=== PATIENT | male | born 1935 | race Caucasian/White ===

== ENCOUNTER → 2019-01-01 | Outpatient (CLI) | payer MEDICARE, BC ==
[~2019-01-01] MED LIST: ATOR10; ATOR20 PO; CELE100 PO; CELE200; CETI10 PO; CLOP75 PO; DEPO-TESTOSTERONE; DICL.1SO OD; DIPASPER PO; ENBREL; ETAN25I SUBQ; FISH1000 PO; GLIM2; GLIM4 PO; GUAI600T33 PO; METF500 PO; METTREX2.5; NIFE90ER; Norco 10-325 T1 EACH PO; OMEP20ER PO; OXYACE5T PO; ROSI4; RXERYTOPTH OP; TESTOST; TRAM50; TRAM50 PO; VENL150ER PO; VENL75ER; VOLTAREN; [UNRECOGNIZED DRUG - REMARK]; [UNRECOGNIZED DRUG - REMARK]
== END | disposition home or self-care (01) ==
LOC: LAB 13:53 → LAB SHORT 13:53 → LAB FUT 01-03 16:45
DX: R19.7 Diarrhea, unspecified (principal)
CPT/HCPCS: 83993

== ENCOUNTER 2019-05-29 16:58 | Emergency (ER) | payer MEDICARE, BC ==
[~2019-05-29] VITALS: Ht 177.8 cm; Wt 72.1 kg
[~2019-05-29 16:58] MED LIST changes: +Aggrenox Capsu1 EACH PO; +LOSA50 PO; +MEMA10 PO; +Percocet 5-3251 EACH PO
[2019-05-29 18:01] LABS: BASOPHILS ABSOLUTE AUTO 0.03 K/mm3 (0.00-0.23); BASOPHILS PERCENT AUTO 0 % (0-2); EOSINOPHILS ABSOLUTE AUTO 0.86 K/mm3 (0.00-0.68); EOSINOPHILS PERCENT AUTO 8 % (0-6); Hematocrit 42.1 % (37.0-53.0); Hemoglobin 14.2 g/dL (13.5-17.5); IMMATURE GRAN ABSOLUTE AUTO 0.03 K/mm3 (0.00-0.10); IMMATURE GRAN PERCENT AUTO 0 % (0-1); LYMPHOCYTES ABSOLUTE AUTO 2.62 K/mm3 (0.84-5.20); LYMPHOCYTES PERCENT AUTO 25 % (21-46); MONOCYTES ABSOLUTE AUTO 1.44 K/mm3 (0.16-1.47); MONOCYTES PERCENT AUTO 14 % (4-13); Mean Corpuscular HGB 31.6 pg (26.0-34.0); Mean Corpuscular HGB Conc 33.7 g/dL (31.5-36.5); Mean Corpuscular Volume 94 fL (80-100); Mean Platelet Volume 8.8 fL (9.1-12.4); NEUTROPHILS ABSOLUTE AUTO 5.67 K/mm3 (1.96-9.15); NEUTROPHILS PERCENT AUTO 53 % (41-73); Platelet Count 175 K/mm3 (150-400); RDW Coefficient Variation 12.8 % (11.7-14.2); RDW Standard Deviation 43.7 fL (35.1-46.3); Red Blood Cell Count 4.49 M/mm3 (4.30-5.90); White Blood Cell Count 10.65 K/mm3 (4.00-11.30)
[2019-05-29] MEDS ORDERED: ATORVASTATIN CA20 MG PO (18:10)
[2019-05-29] MEDS ORDERED: TAMSULOSIN HCL0.4 MG PO (18:11)
[2019-05-29] MEDS ORDERED: Venlafaxine HCl75 MG PO (18:12)
[2019-05-29] MEDS ORDERED: LOSARTAN-HCTZ1 EACH PO (18:12)
[2019-05-29] MEDS ORDERED: ETAN50I (18:12)
[2019-05-29 18:20] LABS: Alanine Aminotransfer (ALT/SGP 24 U/L (12-78); Albumin/Globulin Ratio 1.1 (0.8-1.8); Alk Phos 66 U/L (50-136); Anion Gap 11 mmol/L (6-16); Aspartate Aminotrans (AST/SGOT 15 U/L (12-37); Bilirubin, Total 0.7 mg/dL (0.1-1.0); Blood Urea Nitrogen 28 mg/dL (8-24); Bun/Creatinine Ratio 21.1 (12.0-20.0); CO2, Blood 23 mmol/L (21-32); Chloride, Blood 103 mmol/L (98-108); Creatinine, Blood 1.33 mg/dL (0.60-1.20); Globulin, Blood 3.5 g/dL (2.2-4.0); Glomerular Filtration Rate 54 (60-); Glucose, Blood 67 mg/dL (70-99); Potassium, Blood 4.3 mmol/L (3.5-5.5); Sodium, Blood 137 mmol/L (136-145); Total Protein, Blood 7.5 g/dL (6.4-8.2); Troponin I <0.015 ng/mL (0.000-0.040)
[2019-05-29 18:22] LABS: Source, Urine Clean Catch
[2019-05-29 18:36] LABS: Bilirubin, Urine Neg (Neg); Blood, Urine Neg (Neg); Glucose Qualitative, Urine Neg (Neg); Ketones, Urine 1+ (Neg); Leukocyte Esterase, Urine 1+ (Neg); Nitrite, Urine Neg (Neg); Protein, Urine Neg (Neg); Specific Gravity, Urine 1.015 (1.003-1.022); Urobilinogen, Urine NORM (Normal)
[2019-05-29 18:43] LABS: Appearance, Urine Clear (Clear); Color, Urine Yellow (P-Yellow)
[2019-05-29 18:44] LABS: Red Blood Cells, Urine 0-2 /hpf (0-2); Squamous Epithelial Cells Mod /hpf (Few)
[2019-05-29 18:45] LABS: Bacteria Rare /hpf
== END 2019-05-29 19:28 | disposition home or self-care (01) ==
LOC: ER 16:58
PROVIDERS: Physician Assistant
DX: S61.215A Laceration without foreign body of left ring finger without damage to nail, initial encounter (principal); S80.02XA Contusion of left knee, initial encounter; W10.9XXA Fall (on) (from) unspecified stairs and steps, initial encounter; Z79.899 Other long term (current) drug therapy; Z79.84 Long term (current) use of oral hypoglycemic drugs; Z79.82 Long term (current) use of aspirin; Z86.73 Personal history of transient ischemic attack (TIA), and cerebral infarction without residual deficits; E11.9 Type 2 diabetes mellitus without complications
CPT/HCPCS: 36415; 80053; 81001; 84484; 85025; 87086; 93005; 93010; 96360; 99283-25; J7030

== ENCOUNTER 2019-11-04 09:15 | Observation (INO) | payer MEDICARE, BC ==
[~2019-11-04] VITALS: Ht 180.3 cm; Wt 87.5 kg
[~2019-11-04 09:15] MED LIST changes: +ATORVASTATIN CA20 MG PO; +ETAN50I; +Glucophage1000 MG PO; +LOSARTAN-HCTZ1 EACH PO; +TAMSULOSIN HCL0.4 MG PO; +Venlafaxine HCl75 MG PO
[2019-11-04] MEDS ORDERED: LOSARTAN POTASS50 MG PO (09:57)
[2019-11-04] MEDS ORDERED: Hydrochloroth12.5 MG PO (09:58)
[2019-11-04] MEDS ORDERED: PLAVIX75 MG PO (09:58)
[2019-11-04 10:05] LABS: BASOPHILS ABSOLUTE AUTO 0.01 K/mm3 (0.00-0.23); BASOPHILS PERCENT AUTO 0 % (0-2); EOSINOPHILS ABSOLUTE AUTO 0.37 K/mm3 (0.00-0.68); EOSINOPHILS PERCENT AUTO 5 % (0-6); Hematocrit 36.4 % (37.0-53.0); Hemoglobin 12.6 g/dL (13.5-17.5); IMMATURE GRAN ABSOLUTE AUTO 0.03 K/mm3 (0.00-0.10); IMMATURE GRAN PERCENT AUTO 0 % (0-1); LYMPHOCYTES ABSOLUTE AUTO 1.68 K/mm3 (0.84-5.20); LYMPHOCYTES PERCENT AUTO 21 % (21-46); MONOCYTES ABSOLUTE AUTO 0.87 K/mm3 (0.16-1.47); MONOCYTES PERCENT AUTO 11 % (4-13); Mean Corpuscular HGB 31.9 pg (26.0-34.0); Mean Corpuscular HGB Conc 34.6 g/dL (31.5-36.5); Mean Corpuscular Volume 92 fL (80-100); Mean Platelet Volume 8.9 fL (9.1-12.4); NEUTROPHILS ABSOLUTE AUTO 5.05 K/mm3 (1.96-9.15); NEUTROPHILS PERCENT AUTO 63 % (41-73); Platelet Count 177 K/mm3 (150-400); RDW Coefficient Variation 12.3 % (11.7-14.2); RDW Standard Deviation 42.2 fL (35.1-46.3); Red Blood Cell Count 3.95 M/mm3 (4.30-5.90); White Blood Cell Count 8.01 K/mm3 (4.00-11.30)
[2019-11-04 10:24] LABS: Alanine Aminotransfer (ALT/SGP 18 U/L (12-78); Albumin, Blood 3.6 g/dL (3.4-5.0); Albumin/Globulin Ratio 1.1 (0.8-1.8); Alk Phos 69 U/L (50-136); Anion Gap 8 mmol/L (6-16); Aspartate Aminotrans (AST/SGOT 13 U/L (12-37); Bilirubin, Total 0.5 mg/dL (0.1-1.0); Blood Urea Nitrogen 16 mg/dL (8-24); CO2, Blood 25 mmol/L (21-32); Calcium, Blood 9.1 mg/dL (8.5-10.1); Chloride, Blood 99 mmol/L (98-108); Creatinine, Blood 0.89 mg/dL (0.60-1.20); Globulin, Blood 3.2 g/dL (2.2-4.0); Glomerular Filtration Rate >60 (60-); Glucose, Blood 131 mg/dL (70-99); Potassium, Blood 4.4 mmol/L (3.5-5.5); Sodium, Blood 132 mmol/L (136-145); Total Protein, Blood 6.8 g/dL (6.4-8.2); Troponin I <0.015 ng/mL (0.000-0.040)
[2019-11-04 10:35] LABS: International Normalized Ratio 0.97; Prothrombin Time Results 10.4 Sec (9.7-11.5)
[2019-11-04] MEDS ORDERED: VITAMIN B-121000 MC2 PO (14:52)
[2019-11-04] MEDS ORDERED: VENL75ER PO (14:53)
[2019-11-04] MEDS ORDERED: TAMS.4ER PO (14:54)
--- NOTE | 2019-11-04 15:36 | NUR ---
ECHOCARDIOGRAM COMPLETE
--- NOTE | 2019-11-04 15:38 | NUR ---
CALLED FOR REPORT FROM [facility]. NO ANSWER AT THIS TIME.
--- NOTE | 2019-11-04 18:08 | NUR ---
SHIFT SUMMARY PATIENT A/O, SLOW TO RESPOND. FAMILY AT BEDSIDE. FLUIDS INFUSING. PATIENT ARRIVED TO FLOOR LATER IN SHIFT. PATIENT ABLE TO AMBULATE WITH FWW ALTHOUGH SHUFFLING GATE AND SLIGHTLY UNSTEADY. PATIENT EDUCATION ON FALL PREVENTION COMPLETED WITH FAMILY AND PATIENT. TEACH BACK COMPLETED TO AVOID FALLS BY PATIENT. MED REC COMPLETED.
--- NOTE | 2019-11-04 23:12 | NUR ---
Pt refused to use urinal, RIDING TEACHER attempted to assist to BR, very unsteady. Assisted back to bed. Agreed to use bedside commode. IV site of right AC removed as pt continued to bend arm and was irritated with IV machine beeping. New IV (#20) placed in left forearm. NS infusing at 75 ml/hr without apparent distress. Call light in reach.
--- NOTE | 2019-11-05 05:50 | NUR ---
AWAKE INTERMITTENTLY TO USE THE BATHROOM - REFUSED TO USE THE URINAL, BUT WAS QUITE UNSTEADY AMBULATING, SO HE COMPROMIZED AND AGREED TO THE COMMODE AT BEDSIDE. USED COMMODE 2 OR 3 TIMES WITH ASSIST. IVF INFUSING PER MD ORDERS - SEE MAR FOR DETAILS. CALL LIGHT IN REACH.
--- NOTE | 2019-11-05 10:36 | NUR ---
PROVIDER CONTACT REGARDING LEFT ARM PAIN CALLED AND SPOKE WITH DR. CLEMENTE, REPORTED PAIN SEVERE (REPORTED BY PATIENT). DR. CLEMENTE TO REVIEW AND MAKE NEW ORDERS FOR PATIENT. NO NEW ORDERS PROVIDED TO LN.
[2019-11-05] MEDS ORDERED: MELO7.5 PO (13:25)
--- NOTE | 2019-11-05 14:17 | NUR ---
Advance Directive Education/Spiritual Care Visit conducted. Upon receiving an admit referral for advance directive education, I visited patient. Patient is sitting up in bed and alert. I explain the purpose of my visit and then the purpose of the advance directive and patient politely stated that he has no interest in the advance directive. I asked questions about patient's zoroastrian background and patient stated that he has none. 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 Currently his family is the source of strength and anika. I listen empathically, normalize patient's experience and provide companionship. Patient showed little to no change from my visit.
--- NOTE | 2019-11-05 15:33 | NUR ---
PATIENT DISCHARGED PATIENT IV REMOVED. FAMILY AT BEDSIDE. DISCHARGE INSTRUCTIONS PROVIDED TO PATIENT AND FAMILY. PATIENT WHEELED OUT BY WC. PRESCRIPTIONS SENT TO PHARMACY.
== END 2019-11-05 15:31 | disposition home health service (06) ==
LOC: ER 09:15 → MEDS 09:16
PROVIDERS: Emergency Medicine; ADMIT Family Medicine
DX: R55 Syncope and collapse (principal); G30.9 Alzheimer's disease, unspecified; F02.80 Dementia in other diseases classified elsewhere, unspecified severity, without behavioral disturbance, psychotic disturbance, mood disturbance, and anxiety; F01.50 Vascular dementia, unspecified severity, without behavioral disturbance, psychotic disturbance, mood disturbance, and anxiety; E87.1 Hypo-osmolality and hyponatremia; I10 Essential (primary) hypertension; M05.9 Rheumatoid arthritis with rheumatoid factor, unspecified; E11.9 Type 2 diabetes mellitus without complications; M79.7 Fibromyalgia; K21.9 Gastro-esophageal reflux disease without esophagitis; E78.5 Hyperlipidemia, unspecified; M19.032 Primary osteoarthritis, left wrist; E11.42 Type 2 diabetes mellitus with diabetic polyneuropathy; G47.33 Obstructive sleep apnea (adult) (pediatric); M85.80 Other specified disorders of bone density and structure, unspecified site; E86.9 Volume depletion, unspecified; R29.6 Repeated falls; Z79.02 Long term (current) use of antithrombotics/antiplatelets; Z79.82 Long term (current) use of aspirin; Z79.84 Long term (current) use of oral hypoglycemic drugs; Z79.899 Other long term (current) drug therapy; Z88.8 Allergy status to other drugs, medicaments and biological substances; Z66 Do not resuscitate
CPT/HCPCS: 36415; 70450; 70551; 73080; 73090; 73110; 80053; 84484; 85025; 85610; 85730; 93005; 93010; 93306; 93880; 96372; 99285-25; A9270; G0378; J1650; J7030

== ENCOUNTER 2020-11-23 15:51 | Emergency (ER) | payer MEDICARE, BC ==
[~2020-11-23] VITALS: Ht 188 cm; Wt 90.7 kg
[~2020-11-23 15:51] MED LIST changes: +GLUCOPHAGE1000 M1 PO; -Glucophage1000 MG PO; +Hydrochloroth12.5 MG PO; +LOSARTAN POTASS50 MG PO; +MELO7.5 PO; +PLAVIX75 MG PO; +TAMS.4ER PO; +VENL75ER PO; +VITAMIN B-121000 MC2 PO
[2020-11-23 16:41] LABS: BASOPHILS ABSOLUTE AUTO 0.03 K/mm3 (0.00-0.23); BASOPHILS PERCENT AUTO 0 % (0-2); EOSINOPHILS ABSOLUTE AUTO 0.57 K/mm3 (0.00-0.68); EOSINOPHILS PERCENT AUTO 5 % (0-6); Hematocrit 37.9 % (37.0-53.0); Hemoglobin 12.9 g/dL (13.5-17.5); IMMATURE GRAN ABSOLUTE AUTO 0.04 K/mm3 (0.00-0.10); IMMATURE GRAN PERCENT AUTO 0 % (0-1); LYMPHOCYTES ABSOLUTE AUTO 2.13 K/mm3 (0.84-5.20); LYMPHOCYTES PERCENT AUTO 20 % (21-46); MONOCYTES ABSOLUTE AUTO 1.25 K/mm3 (0.16-1.47); MONOCYTES PERCENT AUTO 12 % (4-13); Mean Corpuscular HGB 31.5 pg (26.0-34.0); Mean Corpuscular Volume 93 fL (80-100); Mean Platelet Volume 9.1 fL (9.1-12.4); NEUTROPHILS ABSOLUTE AUTO 6.66 K/mm3 (1.96-9.15); NEUTROPHILS PERCENT AUTO 62 % (41-73); Platelet Count 193 K/mm3 (150-400); RDW Coefficient Variation 13.2 % (11.7-14.2); RDW Standard Deviation 44.5 fL (35.1-46.3); Red Blood Cell Count 4.09 M/mm3 (4.30-5.90); White Blood Cell Count 10.68 K/mm3 (4.00-11.30)
[2020-11-23 16:52] LABS: Alanine Aminotransfer (ALT/SGP 28 U/L (12-78); Albumin, Blood 3.5 g/dL (3.4-5.0); Albumin/Globulin Ratio 1.1 (0.8-1.8); Alk Phos 57 U/L (50-136); Anion Gap 9 mmol/L (6-16); Aspartate Aminotrans (AST/SGOT 101 U/L (12-37); Bilirubin, Total 0.8 mg/dL (0.1-1.0); Blood Urea Nitrogen 30 mg/dL (8-24); Bun/Creatinine Ratio 29.7 (12.0-20.0); CO2, Blood 23 mmol/L (21-32); Calcium, Blood 9.3 mg/dL (8.5-10.1); Chloride, Blood 106 mmol/L (98-108); Creatinine, Blood 1.01 mg/dL (0.60-1.20); Globulin, Blood 3.3 g/dL (2.2-4.0); Glomerular Filtration Rate >60 (60-); Glucose, Blood 99 mg/dL (70-99); Potassium, Blood 4.7 mmol/L (3.5-5.5); Sodium, Blood 138 mmol/L (136-145); Total Protein, Blood 6.8 g/dL (6.4-8.2); Troponin I <0.015 ng/mL (0.000-0.040)
[2020-11-23 18:35] LABS: Source, Urine Clean Catch
[2020-11-23 18:41] LABS: Appearance, Urine Clear (Clear); Bilirubin, Urine Neg (Neg); Blood, Urine 3+ (Neg); Color, Urine Yellow (P-Yellow); Glucose Qualitative, Urine Neg (Neg); Ketones, Urine Neg (Neg); Leukocyte Esterase, Urine 3+ (Neg); Nitrite, Urine Neg (Neg); Protein, Urine Neg (Neg); Urobilinogen, Urine NORM (Normal)
[2020-11-23 18:52] LABS: Bacteria Few /hpf; Red Blood Cells, Urine 0-2 /hpf (0-2); Squamous Epithelial Cells Not Seen /hpf (Few); White Blood Cells, Urine 25-50 /hpf (0-5)
[2020-11-23] MEDS ORDERED: TIZANIDINE HCL2 M1 PO (19:12)
[2020-11-23] MEDS ORDERED: ENBREL50 MG/1 M2 SC (19:13)
[2020-11-23] MEDS ORDERED: FOSAMAX70 MG PO (19:15)
[2020-11-23] MEDS ORDERED: CEFP200 PO (20:29)
== END 2020-11-23 21:15 | disposition home or self-care (01) ==
LOC: ER 15:51
PROVIDERS: Emergency Medicine
DX: N39.0 Urinary tract infection, site not specified (principal); E86.0 Dehydration; M79.604 Pain in right leg; Z79.899 Other long term (current) drug therapy
CPT/HCPCS: 80053; 81001; 84484; 85025; 87077; 87086; 87186; 93005; 93010; 93971; 96365; 99285-25; J0696; J7120

== ENCOUNTER 2021-05-12 08:35 | Emergency (ER) | payer OTHER, MEDICARE, BC ==
[~2021-05-12] VITALS: Ht 182.9 cm; Wt 88.5 kg
[~2021-05-12 08:35] MED LIST changes: +CEFP200 PO; +ENBREL50 MG/1 M2 SC; +FOSAMAX70 MG PO; +TIZANIDINE HCL2 M1 PO
[2021-05-12 09:25] LABS: Calcium, Ionized (POC) 1.19 mmol/L (1.10-1.46); Chloride (POC) 98 mmol/L (98-108); Creatinine (POC) 1.2 mg/dL (0.8-1.3); Glucose (ISTAT POC) 148 mg/dL (70-99); Hemoglobin (POC) 11.6 g/dL (13.5-17.5); Potassium (POC) 4.2 mmol/L (3.5-5.5); Sodium (POC) 135 mmol/L (135-148); Total CO2 (POC) 22 mmol/L (21-32)
[2021-05-12 10:07] LABS: Source, Urine Clean Catch
[2021-05-12 10:15] LABS: Appearance, Urine Hazy (Clear); Bilirubin, Urine Neg (Neg); Blood, Urine 1+ (Neg); Color, Urine Yellow (P-Yellow); Glucose Qualitative, Urine Neg (Neg); Ketones, Urine Neg (Neg); Leukocyte Esterase, Urine 3+ (Neg); Nitrite, Urine Neg (Neg); Protein, Urine 1+ (Neg); Specific Gravity, Urine 1.015 (1.003-1.022); Urobilinogen, Urine NORM (Normal)
[2021-05-12 10:54] LABS: Red Blood Cells, Urine 0-2 /hpf (0-2); Squamous Epithelial Cells Rare /hpf (Few); White Blood Cells, Urine 25-50 /hpf (0-5)
[2021-05-12 10:55] LABS: Bacteria Few /hpf
== END 2021-05-12 11:03 | disposition home or self-care (01) ==
LOC: ER 08:35
PROVIDERS: Emergency Medicine
DX: Z04.3 Encounter for examination and observation following other accident (principal); Z79.02 Long term (current) use of antithrombotics/antiplatelets; Z79.899 Other long term (current) drug therapy; W01.0XXA Fall on same level from slipping, tripping and stumbling without subsequent striking against object, initial encounter
CPT/HCPCS: 36415; 51701; 72170; 80047; 81001; 85014; 87077; 87086; 87186; 93005; 93010; 99284-25

== ENCOUNTER 2021-06-05 22:33 | Emergency (ER) | payer MEDICARE, BC ==
[~2021-06-05] VITALS: Ht 182.9 cm; Wt 83.9 kg
[2021-06-05 23:07] LABS: BASOPHILS ABSOLUTE AUTO 0.02 K/mm3 (0.00-0.23); BASOPHILS PERCENT AUTO 0 % (0-2); EOSINOPHILS ABSOLUTE AUTO 0.92 K/mm3 (0.00-0.68); EOSINOPHILS PERCENT AUTO 10 % (0-6); Hematocrit 35.4 % (37.0-53.0); Hemoglobin 12.1 g/dL (13.5-17.5); IMMATURE GRAN ABSOLUTE AUTO 0.02 K/mm3 (0.00-0.10); IMMATURE GRAN PERCENT AUTO 0 % (0-1); LYMPHOCYTES ABSOLUTE AUTO 3.28 K/mm3 (0.84-5.20); LYMPHOCYTES PERCENT AUTO 35 % (21-46); MONOCYTES ABSOLUTE AUTO 1.31 K/mm3 (0.16-1.47); MONOCYTES PERCENT AUTO 14 % (4-13); Mean Corpuscular HGB 31.3 pg (26.0-34.0); Mean Corpuscular HGB Conc 34.2 g/dL (31.5-36.5); Mean Corpuscular Volume 92 fL (80-100); Mean Platelet Volume 8.8 fL (9.1-12.4); NEUTROPHILS PERCENT AUTO 41 % (41-73); Platelet Count 220 K/mm3 (150-400); RDW Coefficient Variation 13.8 % (11.7-14.2); RDW Standard Deviation 46.5 fL (35.1-46.3); Red Blood Cell Count 3.87 M/mm3 (4.30-5.90); White Blood Cell Count 9.35 K/mm3 (4.00-11.30)
[2021-06-05 23:25] LABS: Alanine Aminotransfer (ALT/SGP 29 U/L (12-78); Albumin, Blood 3.5 g/dL (3.4-5.0); Albumin/Globulin Ratio 1.1 (0.8-1.8); Alk Phos 67 U/L (50-136); Anion Gap 5 mmol/L (6-16); Aspartate Aminotrans (AST/SGOT 17 U/L (12-37); Bilirubin, Total 0.4 mg/dL (0.1-1.0); Blood Urea Nitrogen 21 mg/dL (8-24); Bun/Creatinine Ratio 19.4 (12.0-20.0); CO2, Blood 25 mmol/L (21-32); Calcium, Blood 9.2 mg/dL (8.5-10.1); Chloride, Blood 106 mmol/L (98-108); Creatinine, Blood 1.08 mg/dL (0.60-1.20); Globulin, Blood 3.3 g/dL (2.2-4.0); Glomerular Filtration Rate >60 (60-); Glucose, Blood 131 mg/dL (70-99); Potassium, Blood 4.3 mmol/L (3.5-5.5); Sodium, Blood 136 mmol/L (136-145); Total Protein, Blood 6.8 g/dL (6.4-8.2)
[2021-06-05 23:46] LABS: Source, Urine Clean Catch
[2021-06-05 23:50] LABS: Bilirubin, Urine Neg (Neg); Blood, Urine 1+ (Neg); Glucose Qualitative, Urine Neg (Neg); Ketones, Urine Neg (Neg); Leukocyte Esterase, Urine 3+ (Neg); Nitrite, Urine Neg (Neg); Protein, Urine 1+ (Neg); Urobilinogen, Urine NORM (Normal)
[2021-06-05 23:52] LABS: Color, Urine Yellow (P-Yellow)
[2021-06-05 23:53] LABS: Appearance, Urine Clear (Clear)
[2021-06-05 23:55] LABS: White Blood Cells, Urine TNTC /hpf (0-5)
[2021-06-05 23:56] LABS: Bacteria Few /hpf; Red Blood Cells, Urine 0-2 /hpf (0-2); Squamous Epithelial Cells Few /hpf (Few)
[2021-06-06] MEDS ORDERED: CEFP200 PO (01:06)
== END 2021-06-06 01:25 | disposition home or self-care (01) ==
LOC: ER 22:33
PROVIDERS: Emergency Medicine
DX: N39.0 Urinary tract infection, site not specified (principal); F03.90 Unspecified dementia, unspecified severity, without behavioral disturbance, psychotic disturbance, mood disturbance, and anxiety; E11.9 Type 2 diabetes mellitus without complications; G47.33 Obstructive sleep apnea (adult) (pediatric); Z79.84 Long term (current) use of oral hypoglycemic drugs; Z79.02 Long term (current) use of antithrombotics/antiplatelets; Z79.899 Other long term (current) drug therapy
CPT/HCPCS: 80053; 81001; 85025; 87077; 87086; 87186; 93005; 93010; 96365; 99284-25; J0696

== ENCOUNTER → 2021-08-04 | Outpatient (CLI) | payer MEDICARE, BC ==
[~2021-08-04] MED LIST changes: +CARBIDOPA-LEVO1 EA17
[2021-08-04 11:00] LABS: Source, Urine Voided
[2021-08-04 12:50] LABS: Appearance, Urine Clear (Clear); Bilirubin, Urine Neg (Neg); Blood, Urine Neg (Neg); Color, Urine Yellow (P-Yellow); Glucose Qualitative, Urine Neg (Neg); Ketones, Urine Neg (Neg); Leukocyte Esterase, Urine Neg (Neg); Nitrite, Urine Neg (Neg); Protein, Urine Neg (Neg); Urobilinogen, Urine NORM (Normal)
== END | disposition home or self-care (01) ==
LOC: LAB 10:58 → LAB SHORT 10:58
PROVIDERS: Family Medicine
DX: N39.41 Urge incontinence (principal)
CPT/HCPCS: 81003

== ENCOUNTER → 2021-09-08 | Outpatient (CLI) | payer MEDICARE, BC ==
[2021-09-08 10:04] LABS: Source, Urine Voided
[2021-09-08 12:04] LABS: Appearance, Urine Clear (Clear); Bilirubin, Urine Neg (Neg); Blood, Urine Neg (Neg); Color, Urine Yellow (P-Yellow); Glucose Qualitative, Urine Neg (Neg); Ketones, Urine Neg (Neg); Leukocyte Esterase, Urine Neg (Neg); Nitrite, Urine Neg (Neg); Protein, Urine Neg (Neg); Urobilinogen, Urine NORM (Normal)
== END | disposition home or self-care (01) ==
LOC: LAB 10:01 → LAB SHORT 10:01
PROVIDERS: Physician Assistant
DX: R41.82 Altered mental status, unspecified (principal)
CPT/HCPCS: 81003

== ENCOUNTER 2022-02-08 13:10 | Emergency (ER) | payer MEDICARE, BC ==
[~2022-02-08] VITALS: Ht 185.4 cm; Wt 79.4 kg
[2022-02-08 14:36] LABS: BASOPHILS ABSOLUTE AUTO 0.02 K/mm3 (0.00-0.23); BASOPHILS PERCENT AUTO 0 % (0-2); EOSINOPHILS ABSOLUTE AUTO 0.79 K/mm3 (0.00-0.68); EOSINOPHILS PERCENT AUTO 10 % (0-6); Hematocrit 40.2 % (37.0-53.0); Hemoglobin 13.3 g/dL (13.5-17.5); IMMATURE GRAN ABSOLUTE AUTO 0.02 K/mm3 (0.00-0.10); IMMATURE GRAN PERCENT AUTO 0 % (0-1); LYMPHOCYTES ABSOLUTE AUTO 2.34 K/mm3 (0.84-5.20); LYMPHOCYTES PERCENT AUTO 29 % (21-46); MONOCYTES ABSOLUTE AUTO 0.85 K/mm3 (0.16-1.47); MONOCYTES PERCENT AUTO 11 % (4-13); Mean Corpuscular HGB 30.9 pg (26.0-34.0); Mean Corpuscular HGB Conc 33.1 g/dL (31.5-36.5); Mean Corpuscular Volume 93 fL (80-100); Mean Platelet Volume 9.1 fL (9.1-12.4); NEUTROPHILS ABSOLUTE AUTO 4.03 K/mm3 (1.96-9.15); NEUTROPHILS PERCENT AUTO 50 % (41-73); Platelet Count 195 K/mm3 (150-400); RDW Coefficient Variation 12.8 % (11.7-14.2); RDW Standard Deviation 43.8 fL (35.1-46.3); Red Blood Cell Count 4.31 M/mm3 (4.30-5.90); White Blood Cell Count 8.05 K/mm3 (4.00-11.30)
[2022-02-08 14:55] LABS: Alanine Aminotransfer (ALT/SGP 18 U/L (12-78); Albumin, Blood 3.7 g/dL (3.4-5.0); Albumin/Globulin Ratio 1.1 (0.8-1.8); Alk Phos 65 U/L (50-136); Anion Gap 6 mmol/L (6-16); Aspartate Aminotrans (AST/SGOT 18 U/L (12-37); Bilirubin, Total 0.5 mg/dL (0.1-1.0); Blood Urea Nitrogen 25 mg/dL (8-24); Bun/Creatinine Ratio 25.9 (12.0-20.0); CO2, Blood 26 mmol/L (21-32); Calcium, Blood 9.4 mg/dL (8.5-10.1); Chloride, Blood 106 mmol/L (98-108); Creatinine, Blood 0.96 mg/dL (0.60-1.20); Globulin, Blood 3.5 g/dL (2.2-4.0); Glomerular Filtration Rate >60 (60-); Glucose, Blood 106 mg/dL (70-99); Potassium, Blood 4.5 mmol/L (3.5-5.5); Sodium, Blood 138 mmol/L (136-145); Total Protein, Blood 7.2 g/dL (6.4-8.2)
[2022-02-08 15:51] LABS: International Normalized Ratio 0.98; Prothrombin Time Results 10.3 Sec (9.7-11.5)
== END 2022-02-08 16:41 | disposition home or self-care (01) ==
LOC: ER 13:10
PROVIDERS: Physician Assistant
DX: M79.89 Other specified soft tissue disorders (principal); E11.9 Type 2 diabetes mellitus without complications; Z86.73 Personal history of transient ischemic attack (TIA), and cerebral infarction without residual deficits
CPT/HCPCS: 36415; 80053; 85025; 85610; 93971; 99284-25

== ENCOUNTER 2022-03-26 21:25 | Emergency (ER) | payer MEDICARE, BC ==
[~2022-03-26] VITALS: Ht 182.9 cm; Wt 88.5 kg
== END 2022-03-26 23:31 | disposition left against medical advice (07) ==
LOC: ER 21:25
DX: S09.90XA Unspecified injury of head, initial encounter (principal); W19.XXXA Unspecified fall, initial encounter; Z53.21 Procedure and treatment not carried out due to patient leaving prior to being seen by health care provider
CPT/HCPCS: 70450

== ENCOUNTER → 2022-05-16 | Day surgery (SDC) | payer MEDICARE, BC | LOC: WOUND 03:07 | DX: E11.622 Type 2 diabetes mellitus with other skin ulcer (principal); L97.819 Non-pressure chronic ulcer of other part of right lower leg with unspecified severity; L03.115 Cellulitis of right lower limb; E11.51 Type 2 diabetes mellitus with diabetic peripheral angiopathy without gangrene; G20 Parkinson's disease; F02.80 Dementia in other diseases classified elsewhere, unspecified severity, without behavioral disturbance, psychotic disturbance, mood disturbance, and anxiety; G47.30 Sleep apnea, unspecified; I10 Essential (primary) hypertension; M10.9 Gout, unspecified; M06.9 Rheumatoid arthritis, unspecified; K21.9 Gastro-esophageal reflux disease without esophagitis; N40.0 Benign prostatic hyperplasia without lower urinary tract symptoms; Z88.8 Allergy status to other drugs, medicaments and biological substances; Z87.891 Personal history of nicotine dependence; I69.359 Hemiplegia and hemiparesis following cerebral infarction affecting unspecified side | CPT/HCPCS: A9270; G0463 ==

== ENCOUNTER 2022-06-02 09:21 | Emergency (ER) | payer MEDICARE, BC ==
[~2022-06-02] VITALS: Ht 182.9 cm; Wt 83.9 kg
[2022-06-02 10:21] LABS: BASOPHILS ABSOLUTE AUTO 0.03 K/mm3 (0.00-0.23); BASOPHILS PERCENT AUTO 0 % (0-2); EOSINOPHILS ABSOLUTE AUTO 0.71 K/mm3 (0.00-0.68); EOSINOPHILS PERCENT AUTO 5 % (0-6); Hematocrit 39.3 % (37.0-53.0); Hemoglobin 13.2 g/dL (13.5-17.5); IMMATURE GRAN ABSOLUTE AUTO 0.05 K/mm3 (0.00-0.10); IMMATURE GRAN PERCENT AUTO 0 % (0-1); LYMPHOCYTES ABSOLUTE AUTO 1.86 K/mm3 (0.84-5.20); LYMPHOCYTES PERCENT AUTO 14 % (21-46); MONOCYTES ABSOLUTE AUTO 1.01 K/mm3 (0.16-1.47); MONOCYTES PERCENT AUTO 8 % (4-13); Mean Corpuscular HGB 30.3 pg (26.0-34.0); Mean Corpuscular HGB Conc 33.6 g/dL (31.5-36.5); Mean Corpuscular Volume 90 fL (80-100); NEUTROPHILS ABSOLUTE AUTO 9.58 K/mm3 (1.96-9.15); NEUTROPHILS PERCENT AUTO 72 % (41-73); Platelet Count 254 K/mm3 (150-400); RDW Coefficient Variation 13.2 % (11.7-14.2); RDW Standard Deviation 43.8 fL (35.1-46.3); Red Blood Cell Count 4.36 M/mm3 (4.30-5.90); White Blood Cell Count 13.24 K/mm3 (4.00-11.30)
[2022-06-02 10:32] LABS: Alanine Aminotransfer (ALT/SGP <6 U/L (12-78); Albumin, Blood 3.5 g/dL (3.4-5.0); Alk Phos 83 U/L (50-136); Anion Gap 7 mmol/L (6-16); Aspartate Aminotrans (AST/SGOT 22 U/L (12-37); Bilirubin, Total 0.6 mg/dL (0.1-1.0); Blood Urea Nitrogen 26 mg/dL (8-24); Bun/Creatinine Ratio 30.4 (12.0-20.0); CO2, Blood 24 mmol/L (21-32); Calcium, Blood 9.1 mg/dL (8.5-10.1); Chloride, Blood 106 mmol/L (98-108); Creatinine, Blood 0.86 mg/dL (0.60-1.20); Globulin, Blood 3.6 g/dL (2.2-4.0); Glomerular Filtration Rate 84 (60-); Glucose, Blood 121 mg/dL (70-99); Potassium, Blood 4.6 mmol/L (3.5-5.5); Sodium, Blood 137 mmol/L (136-145); Total Protein, Blood 7.1 g/dL (6.4-8.2)
[2022-06-02 11:34] LABS: Source, Urine Clean Catch
[2022-06-02 11:41] LABS: Appearance, Urine Clear (Clear); Bilirubin, Urine Neg (Neg); Blood, Urine 2+ (Neg); Color, Urine Yellow (P-Yellow); Glucose Qualitative, Urine Neg (Neg); Ketones, Urine Neg (Neg); Leukocyte Esterase, Urine Neg (Neg); Nitrite, Urine Neg (Neg); Protein, Urine Neg (Neg); Specific Gravity, Urine 1.015 (1.003-1.022); Urobilinogen, Urine NORM (Normal)
[2022-06-02 11:50] LABS: White Blood Cells, Urine 0-2 /hpf (0-5)
[2022-06-02 11:53] LABS: Bacteria Rare /hpf; Hyaline Casts 0-2 /lpf (0-2); Squamous Epithelial Cells Rare /hpf (Few)
[2022-06-02] MEDS ORDERED: MULVITA PO (12:00)
== END 2022-06-02 12:54 | disposition home or self-care (01) ==
LOC: ER 09:21
PROVIDERS: Emergency Medicine
DX: R55 Syncope and collapse (principal); E11.9 Type 2 diabetes mellitus without complications; G20 Parkinson's disease
CPT/HCPCS: 71045; 80053; 81001; 84484; 85025; 93005; 93010; J7030

== ENCOUNTER 2022-06-09 02:48 | Day surgery (SDC) | payer MEDICARE, BC ==
[~2022-06-09 02:48] MED LIST changes: +MULVITA PO
== END 2022-06-09 23:12 | disposition home or self-care (01) ==
LOC: WOUND 02:48
DX: E11.622 Type 2 diabetes mellitus with other skin ulcer (principal); L97.222 Non-pressure chronic ulcer of left calf with fat layer exposed; L97.212 Non-pressure chronic ulcer of right calf with fat layer exposed; L03.115 Cellulitis of right lower limb; E11.51 Type 2 diabetes mellitus with diabetic peripheral angiopathy without gangrene; G20 Parkinson's disease
CPT/HCPCS: A9270; G0463

== ENCOUNTER 2022-06-30 00:58 | Day surgery (SDC) | payer MEDICARE, BC | END 2022-06-30 22:55 | disposition home or self-care (01) | LOC: WOUND 00:58 | DX: E11.622 Type 2 diabetes mellitus with other skin ulcer (principal); L97.222 Non-pressure chronic ulcer of left calf with fat layer exposed; L97.219 Non-pressure chronic ulcer of right calf with unspecified severity; S81.812A Laceration without foreign body, left lower leg, initial encounter; S81.811A Laceration without foreign body, right lower leg, initial encounter; X58.XXXA Exposure to other specified factors, initial encounter; L03.115 Cellulitis of right lower limb; E11.51 Type 2 diabetes mellitus with diabetic peripheral angiopathy without gangrene; G20 Parkinson's disease | CPT/HCPCS: G0463 ==

== ENCOUNTER 2022-08-11 02:38 | Day surgery (SDC) | payer MEDICARE, BC | END 2022-08-11 23:25 | disposition home or self-care (01) | LOC: WOUND 02:38 | DX: L08.9 Local infection of the skin and subcutaneous tissue, unspecified (principal); L97.212 Non-pressure chronic ulcer of right calf with fat layer exposed; L03.115 Cellulitis of right lower limb; L97.222 Non-pressure chronic ulcer of left calf with fat layer exposed; E11.622 Type 2 diabetes mellitus with other skin ulcer; E11.51 Type 2 diabetes mellitus with diabetic peripheral angiopathy without gangrene; G20 Parkinson's disease | CPT/HCPCS: G0463 ==

== ENCOUNTER 2022-08-25 01:58 | Day surgery (SDC) | payer MEDICARE, BC ==
[2022-08-25] MEDS ORDERED: PRED5 PO (20:12)
[2022-08-26] MEDS ORDERED: Atarax10 MG PO (02:09)
[2022-08-26] MEDS ORDERED: TIZA4 PO (07:13)
[2022-08-26] MEDS ORDERED: MYRBETRIQ25 MG PO (07:13)
== END 2022-08-25 23:01 | disposition home or self-care (01) ==
LOC: WOUND 01:58
DX: E11.622 Type 2 diabetes mellitus with other skin ulcer (principal); L97.212 Non-pressure chronic ulcer of right calf with fat layer exposed; L97.222 Non-pressure chronic ulcer of left calf with fat layer exposed; L03.115 Cellulitis of right lower limb; E11.51 Type 2 diabetes mellitus with diabetic peripheral angiopathy without gangrene; G20 Parkinson's disease
CPT/HCPCS: G0463

== ENCOUNTER 2022-08-25 15:45 | Inpatient (IN) | payer MEDICARE, BC ==
[~2022-08-25] VITALS: Ht 175.3 cm; Wt 85.7 kg
[2022-08-25 17:14] LABS: Source, Urine Straight Cath
[2022-08-25 17:17] LABS: Appearance, Urine Clear (Clear); Bilirubin, Urine Neg (Neg); Blood, Urine Neg (Neg); Color, Urine Amber (P-Yellow); Glucose Qualitative, Urine Neg (Neg); Ketones, Urine Neg (Neg); Leukocyte Esterase, Urine Neg (Neg); Nitrite, Urine Neg (Neg); Protein, Urine Neg (Neg); Specific Gravity, Urine 1.015 (1.003-1.022); Urobilinogen, Urine NORM (Normal)
[2022-08-25 17:23] LABS: BASOPHILS ABSOLUTE AUTO 0.02 K/mm3 (0.00-0.23); BASOPHILS PERCENT AUTO 0 % (0-2); EOSINOPHILS ABSOLUTE AUTO 0.61 K/mm3 (0.00-0.68); EOSINOPHILS PERCENT AUTO 7 % (0-6); Hematocrit 35.5 % (37.0-53.0); Hemoglobin 12.2 g/dL (13.5-17.5); IMMATURE GRAN ABSOLUTE AUTO 0.03 K/mm3 (0.00-0.10); IMMATURE GRAN PERCENT AUTO 0 % (0-1); LYMPHOCYTES ABSOLUTE AUTO 1.93 K/mm3 (0.84-5.20); LYMPHOCYTES PERCENT AUTO 22 % (21-46); MONOCYTES ABSOLUTE AUTO 0.99 K/mm3 (0.16-1.47); MONOCYTES PERCENT AUTO 11 % (4-13); Mean Corpuscular HGB Conc 34.4 g/dL (31.5-36.5); Mean Corpuscular Volume 90 fL (80-100); NEUTROPHILS ABSOLUTE AUTO 5.08 K/mm3 (1.96-9.15); NEUTROPHILS PERCENT AUTO 59 % (41-73); Platelet Count 225 K/mm3 (150-400); RDW Coefficient Variation 13.7 % (11.7-14.2); Red Blood Cell Count 3.94 M/mm3 (4.30-5.90); White Blood Cell Count 8.66 K/mm3 (4.00-11.30)
[2022-08-25 17:47] LABS: International Normalized Ratio 0.98; Prothrombin Time Results 10.3 Sec (9.7-11.5)
[2022-08-25 17:50] LABS: Alanine Aminotransfer (ALT/SGP 11 U/L (12-78); Albumin, Blood 3.1 g/dL (3.4-5.0); Albumin/Globulin Ratio 0.9 (0.8-1.8); Alk Phos 78 U/L (50-136); Anion Gap 10 mmol/L (6-16); Aspartate Aminotrans (AST/SGOT 21 U/L (12-37); Bilirubin, Total 0.3 mg/dL (0.1-1.0); Blood Urea Nitrogen 39 mg/dL (8-24); Bun/Creatinine Ratio 32.8 (12.0-20.0); CO2, Blood 22 mmol/L (21-32); Chloride, Blood 107 mmol/L (98-108); Creatinine, Blood 1.19 mg/dL (0.60-1.20); Globulin, Blood 3.3 g/dL (2.2-4.0); Glomerular Filtration Rate 59 (60-); Glucose, Blood 105 mg/dL (70-99); Potassium, Blood 4.1 mmol/L (3.5-5.5); Sodium, Blood 139 mmol/L (136-145); Total Protein, Blood 6.4 g/dL (6.4-8.2)
[2022-08-25] MEDS ORDERED: PRED5 PO (20:12)
[2022-08-25 20:43] LABS: CHOL/HDL RATIO 2.7; Cholesterol 121 mg/dL (50-200); HDL Cholesterol 45 mg/dL (>39); Low Density Lipoprotein Chol 47 mg/dL (0-110); Triglycerides 147 mg/dL (30-160); Very Low Density Lipoprot Chol 29 mg/dL (6-32)
[2022-08-26] MEDS ORDERED: Atarax10 MG PO (02:09)
[2022-08-26 04:36] LABS: BASOPHILS ABSOLUTE AUTO 0.01 K/mm3 (0.00-0.23); BASOPHILS PERCENT AUTO 0 % (0-2); EOSINOPHILS ABSOLUTE AUTO 0.67 K/mm3 (0.00-0.68); EOSINOPHILS PERCENT AUTO 8 % (0-6); Hematocrit 34.9 % (37.0-53.0); Hemoglobin 11.6 g/dL (13.5-17.5); IMMATURE GRAN ABSOLUTE AUTO 0.05 K/mm3 (0.00-0.10); IMMATURE GRAN PERCENT AUTO 1 % (0-1); LYMPHOCYTES PERCENT AUTO 26 % (21-46); MONOCYTES ABSOLUTE AUTO 1.01 K/mm3 (0.16-1.47); MONOCYTES PERCENT AUTO 11 % (4-13); Mean Corpuscular HGB 30.1 pg (26.0-34.0); Mean Corpuscular HGB Conc 33.2 g/dL (31.5-36.5); Mean Corpuscular Volume 90 fL (80-100); Mean Platelet Volume 8.9 fL (9.1-12.4); NEUTROPHILS ABSOLUTE AUTO 4.83 K/mm3 (1.96-9.15); NEUTROPHILS PERCENT AUTO 54 % (41-73); Platelet Count 211 K/mm3 (150-400); RDW Coefficient Variation 13.8 % (11.7-14.2); RDW Standard Deviation 45.5 fL (35.1-46.3); Red Blood Cell Count 3.86 M/mm3 (4.30-5.90); White Blood Cell Count 8.87 K/mm3 (4.00-11.30)
[2022-08-26 05:13] LABS: Bun/Creatinine Ratio 37.1 (12.0-20.0); Calcium, Blood 9.1 mg/dL (8.5-10.1); Creatinine, Blood 0.97 mg/dL (0.60-1.20); Potassium, Blood 4.4 mmol/L (3.5-5.5)
--- NOTE | 2022-08-26 06:17 | NUR ---
SHIFT SUMMARY PT ADMITTED AROUND MIDNIGHT FOR POSSIBLE TIA- PT A&O X 2-3 - WHICH IS BASELINE- DAUGHTER AT BEDSIDE- IV INFUSING 100ML/HR- PT TAKES PILLS WHOLE ONE AT A TIME- INCONTIENT AND NEEDS OFFERED A URINAL- PLAN FOR MRI THIS AM
[2022-08-26] MEDS ORDERED: TIZA4 PO (07:13)
[2022-08-26] MEDS ORDERED: MYRBETRIQ25 MG PO (07:13)
--- NOTE | 2022-08-26 17:29 | NUR ---
SHIFT SUMMARY- CONFUSED FLAT AFFECT. VSS. APPETITE OK. UNABLE TO FEED SELF AT TIMES, PT TRY'S TO SELF FEED. AMBULATED WITH SBA2 SHUFFLES FEET, AND GETS TIRED. UP IN CHAIR MOST OF SHIFT. NOT REDIRECTABLE. DAUGHTER AT BEDSIDE. NO SIGN OR C/O PAIN. BED ALARM ON, SIDE RAILS UP ,AND CALL LIGHT IN REACH.
[2022-08-27 04:47] LABS: BASOPHILS ABSOLUTE AUTO 0.01 K/mm3 (0.00-0.23); BASOPHILS PERCENT AUTO 0 % (0-2); EOSINOPHILS ABSOLUTE AUTO 0.81 K/mm3 (0.00-0.68); EOSINOPHILS PERCENT AUTO 10 % (0-6); Hemoglobin 12.9 g/dL (13.5-17.5); IMMATURE GRAN ABSOLUTE AUTO 0.02 K/mm3 (0.00-0.10); IMMATURE GRAN PERCENT AUTO 0 % (0-1); LYMPHOCYTES ABSOLUTE AUTO 2.04 K/mm3 (0.84-5.20); LYMPHOCYTES PERCENT AUTO 25 % (21-46); MONOCYTES ABSOLUTE AUTO 0.74 K/mm3 (0.16-1.47); MONOCYTES PERCENT AUTO 9 % (4-13); Mean Corpuscular HGB 30.3 pg (26.0-34.0); Mean Corpuscular HGB Conc 33.9 g/dL (31.5-36.5); Mean Corpuscular Volume 89 fL (80-100); NEUTROPHILS ABSOLUTE AUTO 4.52 K/mm3 (1.96-9.15); NEUTROPHILS PERCENT AUTO 56 % (41-73); Platelet Count 236 K/mm3 (150-400); RDW Coefficient Variation 13.5 % (11.7-14.2); RDW Standard Deviation 44.3 fL (35.1-46.3); Red Blood Cell Count 4.26 M/mm3 (4.30-5.90); White Blood Cell Count 8.14 K/mm3 (4.00-11.30)
--- NOTE | 2022-08-27 04:47 | NUR ---
SHIFT LARGELY UNREMARKABLE. CLIENT SLEPT THROUGH THE NIGHT WITH DAUGHTER AT BEDSIDE. CLIENT IS INCONTINENT AND REQUIRED MULTIPLE BRIEF CHANGES OVER THE COURSE OF THE NIGHT. AOX1-2. CALL LIGHT LEFT WITHIN REACH.
[2022-08-27 05:09] LABS: Albumin, Blood 3.2 g/dL (3.4-5.0); Albumin/Globulin Ratio 0.8 (0.8-1.8); Bilirubin, Total 0.6 mg/dL (0.1-1.0); Bun/Creatinine Ratio 27.6 (12.0-20.0); Calcium, Blood 9.8 mg/dL (8.5-10.1); Creatinine, Blood 0.91 mg/dL (0.60-1.20); Globulin, Blood 3.8 g/dL (2.2-4.0); Magnesium, Blood 1.9 mg/dL (1.6-2.4); Potassium, Blood 4.3 mmol/L (3.5-5.5)
--- NOTE | 2022-08-27 18:17 | NUR ---
SHIFT SUMMARY- VSS. PT MORE MOBILE, W SBA AND FWW TO RESTROOM. A@O X1-2. PT MORE RESPONSIVE. EASLIY REDIRECTABLE FOR LONGER PERIODS OF TIME. PT FED SELF, SOME CONFUSION BUT MANAGED TO COMPLETE MEAL ON OWN WITH REDIRECTION. PT FIDGITY AT TIMES. PILLS WHOLE WITH WATER. NO C/O PAIN DURING SHIFT. ON RA, NO SOB REPORTED/NOTICED. BED/CHAIR ALARM ENGAGED, CALL LIGHT IN REACH. WILL CONITUE TO MONITOR.
--- NOTE | 2022-08-28 04:26 | NUR ---
SHIFT MOSTLY UNREMARKABLE. CLIENT HAS SLEPT THROUGH MAJORITY OF SHIFT. CLIENT WILL OCCASIONALLY WAKE CONFUSED AND WANTING TO GET UP BUT IS EASILY REDIRECTABLE. AOX1 THROUGHOUT SHIFT. CONDITION OTHERWISE UNCHANGED. CALL LIGHT LEFT WITHIN REACH.
--- NOTE | 2022-08-28 17:41 | NUR ---
SHIFT SUMMARY; PATIENT NOTED TO BE SCRATCHING ARMS LEGS AND ABDOMEN DURING DAY SHIFT. SMALL WELTS NOTED ON ARMS WHERE BANDAIDS HAD BEEN. LOOKS TO BE ALLERGY TO ADHESIVE. BANDAIDS REMOVED AND CLEANSED WITH WATER. NO REDNESS NOTED TO TELE PADS. WILL PASS ON IN REPORT TO WATCH FOR REACTION. DAUGHTER COMES TO ROOM AND LETS THIS RN KNOW SHE IS THE CAREGIVER FOR HER MOM AND DAD WHO BOTH HAVE DEMENTIA. THIS IS AGGREABLE TO SNF PLACEMENT FOR HER DAD TO GET STRONGER. HE IS NO LONGER ON AC HS CHEM BG AND INSULIN WAS DC'D. VITAL SIGNS ARE STABLE AT THIS TIME.
--- NOTE | 2022-08-29 04:07 | NUR ---
SHIFT SUMMARY ADMITTED FOR LEFT CVA, RT SIDE DEFICITS. FULL CODE. HE IS CONFUSED. HE REMOVES HIS CLOTHING AND HIS ATTENDS. HE IS INCONTINENT. HE DEVELOPED WELTS FROM ADHESIVE ON PREVIOUS SHIFTS. HE REMOVED HIS TELEMETRY MULTIPLE TIMES THIS SHIFT. I DID NOTE HIM SCRATCHING AT NUMEROUS WELTS WHERE PADS WERE PLACED. ORDER RECEIVED TO DC TELEMETRY. HE HAS A HX OF PARKINSON'S/DEMENTIA. PLAN IS FOR PLACEMENT IN SNF UPON DC.
[2022-08-29 09:03] LABS: BASOPHILS ABSOLUTE AUTO 0.02 K/mm3 (0.00-0.23); BASOPHILS PERCENT AUTO 0 % (0-2); EOSINOPHILS PERCENT AUTO 10 % (0-6); Hemoglobin 13.6 g/dL (13.5-17.5); IMMATURE GRAN ABSOLUTE AUTO 0.03 K/mm3 (0.00-0.10); IMMATURE GRAN PERCENT AUTO 0 % (0-1); LYMPHOCYTES ABSOLUTE AUTO 1.86 K/mm3 (0.84-5.20); LYMPHOCYTES PERCENT AUTO 20 % (21-46); MONOCYTES ABSOLUTE AUTO 0.93 K/mm3 (0.16-1.47); MONOCYTES PERCENT AUTO 10 % (4-13); Mean Corpuscular HGB 30.4 pg (26.0-34.0); Mean Corpuscular HGB Conc 34.9 g/dL (31.5-36.5); Mean Corpuscular Volume 87 fL (80-100); Mean Platelet Volume 8.9 fL (9.1-12.4); NEUTROPHILS ABSOLUTE AUTO 5.54 K/mm3 (1.96-9.15); NEUTROPHILS PERCENT AUTO 60 % (41-73); Platelet Count 254 K/mm3 (150-400); RDW Coefficient Variation 13.3 % (11.7-14.2); RDW Standard Deviation 42.9 fL (35.1-46.3); Red Blood Cell Count 4.47 M/mm3 (4.30-5.90); White Blood Cell Count 9.28 K/mm3 (4.00-11.30)
[2022-08-29 09:22] LABS: Albumin, Blood 3.4 g/dL (3.4-5.0); Albumin/Globulin Ratio 0.9 (0.8-1.8); Bilirubin, Total 0.7 mg/dL (0.1-1.0); Bun/Creatinine Ratio 26.2 (12.0-20.0); Calcium, Blood 9.6 mg/dL (8.5-10.1); Creatinine, Blood 1.03 mg/dL (0.60-1.20); Globulin, Blood 3.8 g/dL (2.2-4.0); Potassium, Blood 4.1 mmol/L (3.5-5.5); Total Protein, Blood 7.2 g/dL (6.4-8.2)
--- NOTE | 2022-08-29 14:13 | NUR ---
SHIFT SUMMARY; PATIENT IS DISCHARGED TO HOME. LEAVING WITH HIS DAUGHTER AND HIS SPOUSE. DAUGHTER IS CAREGIVER FOR BOTH PARENTS. RX FAXED TO [facility]. [place] AFTERNOON DOSE PROVIDED TO PATIENT PRIOR TO HIM LEAVING UNIT. [employer] MASTERS ASSISTS PAITENT INTO HIS STREET CLOTHING AND THIS RN REMOVES IV INTACT.
== END 2022-08-29 15:14 | disposition home health service (06) | DRG 65 ==
LOC: ER 15:45 → MEDS 15:46
PROVIDERS: Family Medicine; Hospitalist; Student in an Organized Health Care Education/Training Program; ADMIT Family Medicine
DX: I63.89 Other cerebral infarction (principal); G81.94 Hemiplegia, unspecified affecting left nondominant side; M06.9 Rheumatoid arthritis, unspecified; G47.33 Obstructive sleep apnea (adult) (pediatric); E11.9 Type 2 diabetes mellitus without complications; R29.700 NIHSS score 0; G20 Parkinson's disease; F02.80 Dementia in other diseases classified elsewhere, unspecified severity, without behavioral disturbance, psychotic disturbance, mood disturbance, and anxiety; R27.0 Ataxia, unspecified; F32.9 Major depressive disorder, single episode, unspecified; Z79.84 Long term (current) use of oral hypoglycemic drugs; Z79.899 Other long term (current) drug therapy; Z79.02 Long term (current) use of antithrombotics/antiplatelets; Z98.890 Other specified postprocedural states
CPT/HCPCS: 36415; 70450; 70551; 80048; 80053; 80061; 81003; 82947; 83735; 84100; 85025; 85610; 92526; 92610; 93005; 93010; 93306; 93880; 97110; 97116; 97162; 97166; 97530; 97535; 99285-25; A9270; J1650; J7030

== ENCOUNTER 2022-09-07 15:38 | Inpatient (IN) | payer MEDICARE, BC ==
[~2022-09-07] VITALS: Ht 177.8 cm; Wt 88.5 kg
[~2022-09-07 15:38] MED LIST changes: +Atarax10 MG PO; -CARBIDOPA-LEVO1 EA17; +CARBIDOPA-LEVO1 EA17 PO; -GLUCOPHAGE1000 M1 PO; -TAMS.4ER PO
[2022-09-07 17:30] LABS: Calcium, Ionized (POC) 1.27 mmol/L (1.10-1.46); Chloride (POC) 102 mmol/L (98-108); Creatinine (POC) 1.2 mg/dL (0.8-1.3); Glucose (ISTAT POC) 120 mg/dL (70-99); Hemoglobin (POC) 13.9 g/dL (13.5-17.5); Potassium (POC) 4.5 mmol/L (3.5-5.5); Sodium (POC) 136 mmol/L (135-148); Total CO2 (POC) 24 mmol/L (21-32)
[2022-09-07 19:49] LABS: BASOPHILS ABSOLUTE AUTO 0.02 K/mm3 (0.00-0.23); BASOPHILS PERCENT AUTO 0 % (0-2); EOSINOPHILS ABSOLUTE AUTO 0.64 K/mm3 (0.00-0.68); EOSINOPHILS PERCENT AUTO 7 % (0-6); Hemoglobin 13.3 g/dL (13.5-17.5); IMMATURE GRAN ABSOLUTE AUTO 0.03 K/mm3 (0.00-0.10); IMMATURE GRAN PERCENT AUTO 0 % (0-1); LYMPHOCYTES ABSOLUTE AUTO 1.92 K/mm3 (0.84-5.20); LYMPHOCYTES PERCENT AUTO 22 % (21-46); MONOCYTES ABSOLUTE AUTO 0.84 K/mm3 (0.16-1.47); MONOCYTES PERCENT AUTO 9 % (4-13); Mean Corpuscular HGB 30.9 pg (26.0-34.0); Mean Corpuscular Volume 88 fL (80-100); Mean Platelet Volume 8.6 fL (9.1-12.4); NEUTROPHILS PERCENT AUTO 61 % (41-73); Platelet Count 247 K/mm3 (150-400); RDW Coefficient Variation 13.6 % (11.7-14.2); RDW Standard Deviation 44.1 fL (35.1-46.3); Red Blood Cell Count 4.31 M/mm3 (4.30-5.90); White Blood Cell Count 8.95 K/mm3 (4.00-11.30)
[2022-09-07 20:11] LABS: Albumin, Blood 3.2 g/dL (3.4-5.0); Albumin/Globulin Ratio 0.8 (0.8-1.8); Bilirubin, Total 0.5 mg/dL (0.1-1.0); Bun/Creatinine Ratio 29.1 (12.0-20.0); Calcium, Blood 9.1 mg/dL (8.5-10.1); Creatinine, Blood 0.96 mg/dL (0.60-1.20); Globulin, Blood 3.9 g/dL (2.2-4.0); Magnesium, Blood 2.5 mg/dL (1.6-2.4); Potassium, Blood 4.6 mmol/L (3.5-5.5); Thyroid Stimulating Hormone 1.08 uIU/mL (0.360-4.800); Total Protein, Blood 7.1 g/dL (6.4-8.2)
--- NOTE | 2022-09-08 05:17 | NUR ---
NEW ADMIT FROM ED. PT A&O TO SELF. VSS. DAUGHTER AT BEDSIDE. C/O PAIN 05/07 TO BILAT HANDS. GIVEN LIDOCAINE OINTMENT AND TYLENOL IN ED PRIOR TO COMING TO UNIT. UNSTABLE ON HIS FEET, ASSIST X2 FWW. PT WITH TELE MONITORING, NORMAL SR. PT CONFUSED AND PULLED LEADS OFF TWICE. NEEDS REORIENTATION AND REDIRECTION. SKIN ASSESSMENT COMPLETED WITH OTONIEL GODFREY. PT WITH SCABS AND BRUISING TO UPPER AND LOWER EXTREMITIES. HAS OLD SCARS TO ABDOMEN AND EXTREMITIES FROM HEALED SCABS. BED ALARM ON.
[2022-09-08 06:14] LABS: BASOPHILS ABSOLUTE AUTO 0.01 K/mm3 (0.00-0.23); BASOPHILS PERCENT AUTO 0 % (0-2); EOSINOPHILS ABSOLUTE AUTO 1.02 K/mm3 (0.00-0.68); EOSINOPHILS PERCENT AUTO 10 % (0-6); Hematocrit 38.3 % (37.0-53.0); Hemoglobin 13.3 g/dL (13.5-17.5); IMMATURE GRAN ABSOLUTE AUTO 0.03 K/mm3 (0.00-0.10); IMMATURE GRAN PERCENT AUTO 0 % (0-1); LYMPHOCYTES ABSOLUTE AUTO 2.25 K/mm3 (0.84-5.20); LYMPHOCYTES PERCENT AUTO 21 % (21-46); MONOCYTES ABSOLUTE AUTO 0.86 K/mm3 (0.16-1.47); MONOCYTES PERCENT AUTO 8 % (4-13); Mean Corpuscular HGB 30.8 pg (26.0-34.0); Mean Corpuscular HGB Conc 34.7 g/dL (31.5-36.5); Mean Corpuscular Volume 89 fL (80-100); Mean Platelet Volume 8.7 fL (9.1-12.4); NEUTROPHILS PERCENT AUTO 61 % (41-73); Platelet Count 251 K/mm3 (150-400); RDW Coefficient Variation 13.5 % (11.7-14.2); RDW Standard Deviation 44.1 fL (35.1-46.3); Red Blood Cell Count 4.32 M/mm3 (4.30-5.90); White Blood Cell Count 10.77 K/mm3 (4.00-11.30)
[2022-09-08 06:32] LABS: Albumin, Blood 3.2 g/dL (3.4-5.0); Albumin/Globulin Ratio 0.8 (0.8-1.8); Bilirubin, Total 0.8 mg/dL (0.1-1.0); Calcium, Blood 9.6 mg/dL (8.5-10.1); Globulin, Blood 3.8 g/dL (2.2-4.0); Magnesium, Blood 2.4 mg/dL (1.6-2.4); Potassium, Blood 4.1 mmol/L (3.5-5.5)
--- NOTE | 2022-09-08 18:08 | NUR ---
SHIFT SUMMARY PT CONFUSED THOUGH COOPERATIVE AND PLEASANT. DTR AT BEDSIDE ALL SHIFT. VSS. SWALLOW EVAL DONE. (SEE ST NOTES). PT C/O HAND AND FOREARM PAIN. MD PROVIDED ORDERS FOR LIDOCAINE JELLY TO RUB ON HANDS AND FOREARMS WITH GOOD RESULTS. PALLIATIVE CARE ORDERS IN AND EVAL PENDING. PT & OT SAW PT TODAY.
--- NOTE | 2022-09-09 05:12 | NUR ---
SHIFT SUMMARY PT ORIENTED TO SELF. VSS. C/O PAIN TO BILAT HANDS. LIDOCAINE GEL APPLIED TO HANDS WITH GOOD RESULT. PT OFTEN TIMES HAS RESTLESS LEGS AND PT'S DAUGHTER REQUESTED FOR PT TO HAVE MUSCLE RELAXER. PRN TIZANIDINE AND TYLENOL GIVEN. PT SLEPT OFF AND ON BETWEEN CARE. HAD INCONTINENT OF BLADDER X 2. BRIEFS AND LINEN CHANGED. PT REPOSITONED AND BED ALARM ON. DAUGHTER REMAINED AT BEDSIDE.
[2022-09-09 06:04] LABS: BASOPHILS ABSOLUTE AUTO 0.03 K/mm3 (0.00-0.23); BASOPHILS PERCENT AUTO 0 % (0-2); EOSINOPHILS ABSOLUTE AUTO 0.85 K/mm3 (0.00-0.68); EOSINOPHILS PERCENT AUTO 8 % (0-6); Hematocrit 37.5 % (37.0-53.0); Hemoglobin 12.8 g/dL (13.5-17.5); IMMATURE GRAN ABSOLUTE AUTO 0.02 K/mm3 (0.00-0.10); IMMATURE GRAN PERCENT AUTO 0 % (0-1); LYMPHOCYTES ABSOLUTE AUTO 2.57 K/mm3 (0.84-5.20); LYMPHOCYTES PERCENT AUTO 23 % (21-46); MONOCYTES ABSOLUTE AUTO 1.04 K/mm3 (0.16-1.47); MONOCYTES PERCENT AUTO 9 % (4-13); Mean Corpuscular HGB 30.5 pg (26.0-34.0); Mean Corpuscular HGB Conc 34.1 g/dL (31.5-36.5); Mean Corpuscular Volume 89 fL (80-100); Mean Platelet Volume 8.6 fL (9.1-12.4); NEUTROPHILS ABSOLUTE AUTO 6.63 K/mm3 (1.96-9.15); NEUTROPHILS PERCENT AUTO 60 % (41-73); Platelet Count 250 K/mm3 (150-400); RDW Coefficient Variation 13.6 % (11.7-14.2); RDW Standard Deviation 44.5 fL (35.1-46.3); White Blood Cell Count 11.14 K/mm3 (4.00-11.30)
[2022-09-09 06:30] LABS: Albumin, Blood 3.2 g/dL (3.4-5.0); Albumin/Globulin Ratio 0.9 (0.8-1.8); Bilirubin, Total 0.6 mg/dL (0.1-1.0); Bun/Creatinine Ratio 19.4 (12.0-20.0); Calcium, Blood 9.1 mg/dL (8.5-10.1); Creatinine, Blood 1.03 mg/dL (0.60-1.20); Globulin, Blood 3.6 g/dL (2.2-4.0); Potassium, Blood 4.1 mmol/L (3.5-5.5); Total Protein, Blood 6.8 g/dL (6.4-8.2)
--- NOTE | 2022-09-09 19:05 | NUR ---
SHIFT SUMMARY: PT A/O X 3 BEDREST, PLEASANT AND COOPERATIVE. PT DAUGHTER AND FAMILY IN ROOM WITH PT THROUGHOUT THE DAY. PT UPGRADED TO THIN LIQUIDS BUT HE HAD CHOKING EPISODES WITH SPOON FEEDING WATER. NOTIFIED NOC RN TO CONTINUE NECTAR THICK LIQUIDS. PT PAIN TO HANDS AND KNEES WAS NOT MANAGED WITH TYLENOL THIS AFTERNOON. ORDER RECEIVED FOR TORADOL. PT HAD NO OTHER CONCERNS THROUGHOUT THE DAY. PT DID DEVELOP A RED RASH AROUND FACE OF UNKNOWN ORIGIN. TRIAMCINOLONE CREAM ORDERED AND APPLIED. FAMILY TEARFUL WITH DISCUSSION OF HOSPICE CARE. LISTENED EMPATHETICALLY AND OFFERED SPIRITUAL CARE WHICH WAS DECLINED.
--- NOTE | 2022-09-10 06:47 | NUR ---
SHIFT SUMMARY ALERT AND ORIENTED TO SELF. ONE TO ONE FEEDING. PT ATE ALL OF HIS DINNER. PT RESTLESS AND CONSTANT MOVEMENT OF HIS LEGS. PT LIKES TO SHIFT MORE TO LAYING ON HIS LEFT SIDE AND PUTTING BOTH LEGS ONTO THE RAILS. REPOSITIONED PT MULTIPLE TIMES AT NIGHT. INCONTINENT OF BLADDER. BRIEF CHANGED X 3. PRN 15MG TORADOL PO GIVEN FOR PAIN. BED ALARM ON. PT'S DAUGHTER CALLED FOR UPDATE AT 0400 AND SHE SAYS WILL BE IN SOMETIME THIS MORNING.
[2022-09-10 15:19] LABS: Source, Urine Straight Cath
[2022-09-10 15:25] LABS: Appearance, Urine Clear (Clear); Bilirubin, Urine Neg (Neg); Blood, Urine Neg (Neg); Color, Urine Yellow (P-Yellow); Glucose Qualitative, Urine Neg (Neg); Ketones, Urine Neg (Neg); Leukocyte Esterase, Urine Neg (Neg); Nitrite, Urine Neg (Neg); Protein, Urine 1+ (Neg); Urobilinogen, Urine NORM (Normal)
--- NOTE | 2022-09-10 19:07 | NUR ---
END OF SHIFT SUMMARY: PATIENT REPORTED PAIN THIS MORNING. MEDICATED WITH PRN PAIN MEDICATIONS. PATIENT DENIED PAIN FOR THE REST OF THE SHIFT. PATIENT SLEPT MOST OF THE SHIFT. IF STAFF WAS NOT DIRECTLY INTERACTING WITH HIM, HE WOULD FALL ASLEEP. PATIENT IS EASILY AROUSABLE WHEN SPOKEN TO. PATIENT RESPONDS WITH MINIMAL RESPONSES OR SIMPLY NODDING OF HIS HEAD. PATIENT VISITED BY HIS AND DAUGHTER. THEY ARE SUPPORTIVE OF THE PATIENT AND REPORTED THAT THEY STILL WOULD LIKE HIM TO DISCHARGE WITH HOSPICE SERVICES. PATIENT HAS A MODERATE APPETITE. PATIENT REQUIRED STAFF TO FEED HIM TODAY.
--- NOTE | 2022-09-11 07:46 | NUR ---
SUMMARY DAUGHTER AT PTS BEDSIDE TONIGHT AND DISCUSSED [facility] PER HER TALK WITH DR VELIA COTTRELL.PT IS CURRENTLY FULL CODE AND DAUGHTER VERB SHE WISHES FOR THAT TO REMAIN ALTHOUGH PLANS WERE FOR POSSIBLE HOSPICE DISCHARGE. PT DID NOT APPEAR TO UNDERSTAD HOSPICE BEING GEARED TOWARD ED OF LIFE C[facility]. PALIATIVE CARE CX IS ORDERED AND DAUGHTER OPEN TO DISCUSSIONS AND WANTS MORE INFO BEFORE MAKING FORMAL DECISION.
[2022-09-11] MEDS ORDERED: MYRBETRIQ25 MG PO (13:01)
[2022-09-11] MEDS ORDERED: SEROQUEL50 MG PO (13:04)
[2022-09-11] MEDS ORDERED: GLUCOPHAGE1000 M1 PO (13:06)
[2022-09-11] MEDS ORDERED: TAMS.4ER PO (13:06)
[2022-09-11] MEDS ORDERED: Prednisone2.5 MG PO (13:06)
[2022-09-11] MEDS ORDERED: MIRALAX11910 PO (13:41)
[2022-09-11] MEDS ORDERED: ACET500 PO (13:42)
--- NOTE | 2022-09-11 16:54 | NUR ---
CARE COMFERENCE WITH DAUGHTER TO PROVIDE ANY NEEDED EDUCATION OR SUPPORT WITH PT CURRENT DC PLAN. PT IS TO BE DCD HOME WITH HOSPICE SERVICES, [facility] TO ADMIT PT TOMORROW. DAUGHTER REPORTS SHE DOESNT UNDERSTAND WHAT HOSPICE IS AND WHAT THEY DO. EDUCATED DTR ON HOSPICE PHILOSOPHY AND TEAM APPROACH. ALL QUESTIONS ANSWERED AND SHE IS APPRECIATVE FOR MY VISIT. PROVIDED HER WITH MY CARD AND CONTACT INFO IF SHE NEEDS ANYTHING FURTHER.
--- NOTE | 2022-09-11 18:17 | NUR ---
SHIFT SUMMARY A/OX2, NOOKSACK, PLEASANT AND COOPERATIVE WITH CARE. DENIES PAIN OR SOB. 2P MAX ASSIST FOR TRANSFERS. SWALLOWING PRECAUTIONS IN PLACE, MEDS CRUSHED IN APPLESAUCE. VSS, NO ACUTE CHANGES AT THIS TIME. PLAN IS FOR D/C TO HOME ON HOSPICE TOMORROW 09/12 @1OAM. BED IN LOWEST POSITION WITH CALL LIGHT IN REACH. WILL CONTINUE TO MONITOR AND REPORT TO ONCOMING RN.
--- NOTE | 2022-09-12 04:13 | NUR ---
SHIFT SUMMARY NO OVERNIGHT EVENTS. PT INCONTINENT OF URINE, CHANGED ATTENDS. PT ABLE TO TURN SELF IN BED. DENIES ANY PAIN/SOB. PLANNING ON D/C TODAY AT 10AM. WILL CONTINUE TO MONITOR.
[2022-09-12] MEDS ORDERED: TIZANIDINE HCL2 M1 PO (09:49)
--- NOTE | 2022-09-12 13:03 | NUR ---
DISCHARGE PT D/C'D VIA GURNEY AND AMBULANCE. DAUGHTER AT BEDSIDE. IV D/C'D WNL.
== END 2022-09-12 10:15 | disposition hospice, home (50) | DRG 57 ==
LOC: ER 15:38 → MEDS 15:39
PROVIDERS: Emergency Medicine; Internal Medicine; ADMIT Student in an Organized Health Care Education/Training Program
DX: G20 Parkinson's disease (principal); G93.49 Other encephalopathy; F02.80 Dementia in other diseases classified elsewhere, unspecified severity, without behavioral disturbance, psychotic disturbance, mood disturbance, and anxiety; E11.9 Type 2 diabetes mellitus without complications; Z51.5 Encounter for palliative care; Z66 Do not resuscitate; M06.9 Rheumatoid arthritis, unspecified; G47.33 Obstructive sleep apnea (adult) (pediatric); F32.9 Major depressive disorder, single episode, unspecified; W18.30XA Fall on same level, unspecified, initial encounter; Z88.8 Allergy status to other drugs, medicaments and biological substances; Z79.899 Other long term (current) drug therapy; Z79.02 Long term (current) use of antithrombotics/antiplatelets; Z98.890 Other specified postprocedural states; I69.328 Other speech and language deficits following cerebral infarction
CPT/HCPCS: 36415; 70450; 70553; 71045; 80047; 80053; 82947; 83735; 84145; 84443; 84484; 85014; 85025; 92526; 92610; 93005; 93010; 96372; 97161; 97166; 97530; 97535; 99285-25; A9270; A9579; G0378; J1644

== ENCOUNTER 2022-12-01 14:31 | Emergency (ER) | payer BC, MEDICARE ==
[~2022-12-01] VITALS: Ht 182.9 cm; Wt 81.7 kg
[~2022-12-01 14:31] MED LIST changes: +ACET500 PO; +GLUCOPHAGE1000 M1 PO; +MIRALAX11910 PO; +MYRBETRIQ25 MG PO; +Prednisone2.5 MG PO; +SEROQUEL50 MG PO; +TAMS.4ER PO
[2022-12-01] MEDS ORDERED: CARBIDOPA-LEVO1 EA17 PO (14:56)
[2022-12-01] MEDS ORDERED: MEMA10 PO (14:56)
[2022-12-01 15:08] LABS: BASOPHILS ABSOLUTE AUTO 0.02 K/mm3 (0.00-0.23); BASOPHILS PERCENT AUTO 0 % (0-2); EOSINOPHILS ABSOLUTE AUTO 0.75 K/mm3 (0.00-0.68); EOSINOPHILS PERCENT AUTO 8 % (0-6); Hematocrit 38.5 % (37.0-53.0); Hemoglobin 13.3 g/dL (13.5-17.5); IMMATURE GRAN ABSOLUTE AUTO 0.04 K/mm3 (0.00-0.10); IMMATURE GRAN PERCENT AUTO 0 % (0-1); LYMPHOCYTES PERCENT AUTO 20 % (21-46); MONOCYTES ABSOLUTE AUTO 0.98 K/mm3 (0.16-1.47); MONOCYTES PERCENT AUTO 10 % (4-13); Mean Corpuscular HGB 29.4 pg (26.0-34.0); Mean Corpuscular HGB Conc 34.5 g/dL (31.5-36.5); Mean Corpuscular Volume 85 fL (80-100); Mean Platelet Volume 8.5 fL (9.1-12.4); NEUTROPHILS ABSOLUTE AUTO 6.11 K/mm3 (1.96-9.15); NEUTROPHILS PERCENT AUTO 62 % (41-73); Platelet Count 421 K/mm3 (150-400); RDW Coefficient Variation 13.5 % (11.7-14.2); Red Blood Cell Count 4.52 M/mm3 (4.30-5.90)
[2022-12-01 15:14] LABS: Source, Urine Straight Cath
[2022-12-01 15:22] LABS: Appearance, Urine Clear (Clear); Bilirubin, Urine Neg (Neg); Blood, Urine Neg (Neg); Color, Urine Yellow (P-Yellow); Glucose Qualitative, Urine Neg (Neg); Ketones, Urine Neg (Neg); Leukocyte Esterase, Urine Neg (Neg); Nitrite, Urine Neg (Neg); Protein, Urine Neg (Neg); Urobilinogen, Urine NORM (Normal)
[2022-12-01 15:28] LABS: Albumin, Blood 2.9 g/dL (3.4-5.0); Albumin/Globulin Ratio 0.7 (0.8-1.8); Bilirubin, Total 0.5 mg/dL (0.1-1.0); Bun/Creatinine Ratio 25.9 (12.0-20.0); Calcium, Blood 9.2 mg/dL (8.5-10.1); Creatinine, Blood 0.81 mg/dL (0.60-1.20); Globulin, Blood 4.4 g/dL (2.2-4.0); Potassium, Blood 4.5 mmol/L (3.5-5.5); Total Protein, Blood 7.3 g/dL (6.4-8.2)
== END 2022-12-01 17:36 | disposition home or self-care (01) ==
LOC: ER 14:31
PROVIDERS: Emergency Medicine
DX: R41.82 Altered mental status, unspecified (principal); G20 Parkinson's disease; F02.80 Dementia in other diseases classified elsewhere, unspecified severity, without behavioral disturbance, psychotic disturbance, mood disturbance, and anxiety; E11.9 Type 2 diabetes mellitus without complications; Z86.73 Personal history of transient ischemic attack (TIA), and cerebral infarction without residual deficits; Z79.899 Other long term (current) drug therapy
CPT/HCPCS: 51701; 70450; 72125; 74177; 80053; 81003; 82550; 82947; 83605; 84484; 85025; 93005; 93010; J7030; Q9967